=== PATIENT | male | born 1950 | race Caucasian/White ===

== ENCOUNTER → 2016-09-27 | Outpatient (CLI) | payer MEDICARE ==
[~2016-09-27] VITALS: Ht 177.8 cm; Wt 91.2 kg
[~2016-09-27] MED LIST: ASPI1TAB PO; GLIP10TA6 PO; JANU100T PO; LIDOCAINE 2% INJ 100 MG/5 ML SDV (FOR ANES.) As Ordered ONE; METF750T PO; NS 1,000 ML IV SCH; PROPOFOL 500 MG/50 ML VIAL As Ordered ONE; RAMI10CA PO; SIMV40TA2 PO
--- NOTE | 2016-09-27 12:06 | ROOR ---
Patient Name: Steve Singleton Procedure Date: 09/27/2016 11:37 AM Date of : 1950 Age: 66 Room: [facility] Gender: Male Note Status: Finalized Procedure: Colonoscopy to Cecum + Cold Snare Polypectomy + Hemoclips Indications: High risk colon cancer surveillance: Personal history of adenoma with villous component Providers: Horacio Morin MD Referring MD: WILIAN JACKSON JR, MD Requesting Provider: Medicines: Monitored Anesthesia Care Complications: No immediate complications. Procedure: Pre-Anesthesia Assessment: - The heart rate, respiratory rate, oxygen saturations, blood pressure, adequacy of pulmonary ventilation, and response to care were monitored throughout the procedure. The Colonoscope was introduced through the anus and advanced to the cecum, identified by appendiceal orifice and ileocecal valve. The colonoscopy was performed without difficulty. The patient tolerated the procedure well. The quality of the bowel preparation was good. Findings: The perianal and digital rectal examinations were normal. Non-bleeding internal hemorrhoids were found during retroflexion. The hemorrhoids were small and Grade I (internal hemorrhoids that do not prolapse). A medium polyp was found at 60 cm proximal to the anus. The polyp was sessile. The polyp was removed with a cold snare. Resection and retrieval were complete. To prevent bleeding after the polypectomy, one hemostatic clip was successfully placed (MR conditional). There was no bleeding at the end of the procedure. A diffuse area of granular mucosa was found in the entire colon. Biopsies were taken with a cold forceps for histology. The exam was otherwise without abnormality on direct and retroflexion views. Impression: - Non-bleeding internal hemorrhoids. - One medium polyp at 60 cm proximal to the anus, removed with a cold snare. Resected and retrieved. Clip (MR conditional) was placed. - Granularity in the entire examined colon. Biopsied. - The examination was otherwise normal on direct and retroflexion views. - The exam was otherwise normal to the cecum. Recommendation: - Patient has a contact number available for emergencies. The signs and symptoms of potential delayed complications were discussed with the patient. Return to normal activities tomorrow. Written discharge instructions were provided to the patient. - High fiber diet. - Discharge patient to home. - Continue present medications. - Await pathology results. - Check Portal Online for Path Results.([email or web address]) - Repeat colonoscopy for surveillance based on pathology results. - Return to referring physician. - The findings and recommendations were discussed with the patient's family. Horacio Morin MD Horacio Morin MD 09/27/2016 12:06:19 PM This report has been signed electronically. Number of Addenda: 0 Note Initiated On: 09/27/2016 11:37 AM Estimated Blood Loss: Estimated blood loss: none.
[2016-09-27 12:38] VITALS: BP 141/77
== END ==
LOC: M OPP 10:24
PROVIDERS: ATTEND Internal Medicine Gastroenterology
DX: Z12.11 Encounter for screening for malignant neoplasm of colon (principal); Z86.010 Personal history of colon polyps; D12.6 Benign neoplasm of colon, unspecified; K64.0 First degree hemorrhoids; K63.89 Other specified diseases of intestine; E11.9 Type 2 diabetes mellitus without complications; E78.5 Hyperlipidemia, unspecified; K90.0 Celiac disease; Z87.891 Personal history of nicotine dependence; Z79.82 Long term (current) use of aspirin; Z79.84 Long term (current) use of oral hypoglycemic drugs; Z79.899 Other long term (current) drug therapy

== ENCOUNTER 2017-10-15 06:42 | Day surgery (SDC) | payer MEDICARE ==
[2017-10-15] MEDS: NS 1,000 ML IV (07:02)
[2017-10-15] MEDS ORDERED: PROPOFOL 200 MG/20 ML VIAL As Ordered ×2 (07:24→07:44)
[2017-10-15] MEDS ORDERED: LIDOCAINE 2% INJ 100 MG/5 ML SDV (FOR ANES.) As Ordered (07:24)
== END 2017-10-15 08:24 | disposition home or self-care (01) ==
LOC: M OPP 06:42
DX: K64.0 First degree hemorrhoids (principal); K63.89 Other specified diseases of intestine; Z86.010 Personal history of colon polyps; E11.9 Type 2 diabetes mellitus without complications; E87.5 Hyperkalemia; K90.0 Celiac disease; Z79.82 Long term (current) use of aspirin; Z79.84 Long term (current) use of oral hypoglycemic drugs; Z79.899 Other long term (current) drug therapy; Z87.891 Personal history of nicotine dependence
CPT/HCPCS: 45380

== ENCOUNTER → 2021-04-20 | Outpatient (CLI) | payer MEDICARE ==
[~2021-04-20] MED LIST changes: -ASPI1TAB PO; +ASPI81TA26 PO; -LIDOCAINE 2% INJ 100 MG/5 ML SDV (FOR ANES.) As Ordered ONE; -METF750T PO; +METF750T36 PO; -NS 1,000 ML IV SCH; -PROPOFOL 500 MG/50 ML VIAL As Ordered ONE; -RAMI10CA PO; +RAMI1CAP26 PO; -SIMV40TA2 PO; +SIMV40TA20 PO
--- NOTE | 2021-04-20 12:17 | REP ---
INDICATION: RT ANTERIOR THIGH MASS ? CYST VS SOLID. COMPARISON: None. TECHNIQUE: Multiple ultrasound images of the palpable area in the right thigh were performed. FINDINGS: There is a 9.7 x 4.2 x 1.8 cm hypoechoic mass in the subcutaneous fat of the right thigh consistent with a lipoma. IMPRESSION: Subcutaneous lipoma, right thigh. <Electronically signed by Diego Cruz > 04/20/21 [id number]
== END ==
LOC: M RAD 11:38
PROVIDERS: ATTEND Internal Medicine
DX: D17.23 Benign lipomatous neoplasm of skin and subcutaneous tissue of right leg (principal); Z79.82 Long term (current) use of aspirin; Z79.899 Other long term (current) drug therapy

== ENCOUNTER 2022-02-14 14:37 | Inpatient (IN) | payer MEDICARE ==
[~2022-02-14] VITALS: Ht 175.3 cm; Wt 76.0 kg
[2022-02-14] MEDS ORDERED: TRUL0.5I SC (14:49)
[2022-02-14] MEDS ORDERED: JARD1TAB3 PO (14:49)
[2022-02-14 16:47] LABS: BASO % 0.5 % (0.0-1.0); EOS # 0.1 10^3/uL (0.0-0.5); EOS % 0.7 % (0.0-3.0); HEMATOCRIT 41.3 % (42.0-52.0); HEMOGLOBIN 13.2 g/dl (13.5-17.5); LYMPH # 1.2 10^3/uL (1.5-5.0); LYMPH % 14.6 % (24.0-44.0); MEAN CORPUSCULAR HEMOGLOBIN 26.3 pg (27.0-33.0); MEAN CORPUSCULAR VOLUME 82.3 fl (80.0-96.0); MONO # 0.7 10^3/uL (0.0-0.8); MONO % 8.7 % (2.0-8.0); NEUTROPHILS # 6.1 10^3/uL (1.5-8.5); NEUTROPHILS % 75.1 % (36.0-66.0); PLATELET COUNT, AUTOMATED 236 10^3/uL (150-450); RED BLOOD COUNT 5.02 10^6/uL (4.30-6.10); WHITE BLOOD COUNT 8.1 10^3/uL (4.0-10.0)
[2022-02-14 17:16] LABS: ALBUMIN 3.9 GM/DL (3.2-5.2); ALT/SGPT 25 U/L (12-78); BILIRUBIN,DIRECT 0.2 MG/DL (0.0-0.2); BILIRUBIN,TOTAL 0.5 MG/DL (0.2-1.0); BLOOD UREA NITROGEN 13 MG/DL (7-18); CALCIUM LEVEL 9.4 MG/DL (8.8-10.2); CARBON DIOXIDE LEVEL 26 MEQ/L (21-32); CHLORIDE LEVEL 103 MEQ/L (98-107); CK-MB VALUE MASS 2.1 NG/ML (<3.6); CREATININE FOR GFR 0.94 MG/DL (0.70-1.30); GLOMERULAR FILTRATION RATE > 60.0 (>42); GLUCOSE, FASTING 143 MG/DL (70-100); MB/CK RELATIVE INDEX 1.49 (< OR =4); POTASSIUM SERUM 3.3 MEQ/L (3.5-5.1); SODIUM LEVEL 135 MEQ/L (136-145); TOTAL PROTEIN 6.9 GM/DL (6.4-8.2)
[2022-02-14 17:21] LABS: RSV AMPLIFICATION NEGATIVE (NEGATIVE)
[2022-02-14] MEDS ORDERED: CIPROFLOXACIN 400 MG in IV 1 EA IV ONE (17:45)
[2022-02-14] MEDS ORDERED: metroNIDAZOLE 500 MG in IV 1 EA IV ONE (17:45)
[2022-02-14] MEDS ORDERED: GLUCAGON INJ 1MG VIAL SC PRN (18:00)
[2022-02-14] MEDS ORDERED: DEXTROSE 50% 50 ML SYRINGE IV PRN (18:00)
[2022-02-14] MEDS ORDERED: GLUCOSE 4GM CHEW TABLET PO PRN (18:00)
[2022-02-14] MEDS ORDERED: ISOVUE-370 76% 100ML VIAL As Ordered ONE (18:30)
[2022-02-14] MEDS ORDERED: ONDANSETRON 4MG 2ML VIAL IV PRN (18:45)
[2022-02-14] MEDS ORDERED: MORPHINE 2 MG/ML 1ML VIAL IV PRN (18:45)
[2022-02-14] MEDS: LR 1,000 ML IV SCH (19:44)
[2022-02-14] MEDS: INSULIN LISPRO (NovoLOG) PER UNIT SC SCH (19:49)
[2022-02-14 20:45] VITALS: BP 132/77
[2022-02-14] MEDS: KCL 10MEQ/100ML SWI (KRUN) 10 MEQ in IV 1 EA IV SCH ×2 (21:18→22:31)
[2022-02-14] MEDS: amLODIPine 5 MG TAB PO SCH (23:59)
[2022-02-15] VITALS (7 sets, daily range): BP systolic 128–137; BP diastolic 66–77
[2022-02-15] MEDS ORDERED: GLIP10TA6 PO (00:03)
[2022-02-15] MEDS ORDERED: HOME MED LIST COMPLETE! XX SCH (00:05)
[2022-02-15] MEDS: LR 1,000 ML IV SCH (03:07)
[2022-02-15] MEDS: metroNIDAZOLE 500 MG in IV 1 EA IV SCH ×3 (03:07→20:44)
[2022-02-15] MEDS: CIPROFLOXACIN 400 MG in IV 1 EA IV SCH ×2 (05:08→17:43)
[2022-02-15] MEDS: INSULIN LISPRO (NovoLOG) PER UNIT SC SCH ×4 (06:00→17:49)
[2022-02-15 06:15] LABS: BASO % 0.8 % (0.0-1.0); EOS # 0.1 10^3/uL (0.0-0.5); EOS % 2.7 % (0.0-3.0); HEMATOCRIT 36.4 % (42.0-52.0); HEMOGLOBIN 11.6 g/dl (13.5-17.5); LYMPH # 1.6 10^3/uL (1.5-5.0); LYMPH % 29.8 % (24.0-44.0); MEAN CORPUSCULAR HEMOGLOBIN 26.3 pg (27.0-33.0); MEAN CORPUSCULAR HGB CONC 31.9 g/dl (32.0-36.5); MEAN CORPUSCULAR VOLUME 82.5 fl (80.0-96.0); MONO # 0.6 10^3/uL (0.0-0.8); MONO % 11.5 % (2.0-8.0); NEUTROPHILS # 2.9 10^3/uL (1.5-8.5); PLATELET COUNT, AUTOMATED 198 10^3/uL (150-450); RED BLOOD COUNT 4.41 10^6/uL (4.30-6.10); WHITE BLOOD COUNT 5.2 10^3/uL (4.0-10.0)
[2022-02-15 06:42] LABS: BLOOD UREA NITROGEN 11 MG/DL (7-18); CALCIUM LEVEL 8.7 MG/DL (8.8-10.2); CARBON DIOXIDE LEVEL 25 MEQ/L (21-32); CHLORIDE LEVEL 104 MEQ/L (98-107); CREATININE FOR GFR 0.72 MG/DL (0.70-1.30); GLOMERULAR FILTRATION RATE > 60.0 (>42); GLUCOSE, FASTING 104 MG/DL (70-100); POTASSIUM SERUM 3.3 MEQ/L (3.5-5.1); SODIUM LEVEL 138 MEQ/L (136-145)
[2022-02-15] MEDS ORDERED: KCL 10MEQ/100ML SWI (KRUN) 10 MEQ in IV 1 EA IV ONE (08:00)
[2022-02-15] MEDS: amLODIPine 5 MG TAB PO SCH ×2 (08:30→20:45)
[2022-02-15] MEDS: KCL 40MEQ IN D5/NS 1000ML 1,000 ML IV SCH ×2 (08:31→20:44)
[2022-02-15] MEDS: HEPARIN SOD (PORCINE) 5000UNITS/ML 1ML VIAL/SYRINGE SC SCH ×2 (08:31→20:45)
[2022-02-16] MEDS: INSULIN LISPRO (NovoLOG) PER UNIT SC SCH ×4 (00:51→17:18)
[2022-02-16] MEDS: metroNIDAZOLE 500 MG in IV 1 EA IV SCH ×3 (04:15→20:10)
[2022-02-16] MEDS: CIPROFLOXACIN 400 MG in IV 1 EA IV SCH ×2 (05:27→17:18)
[2022-02-16] MEDS: KCL 40MEQ IN D5/NS 1000ML 1,000 ML IV SCH (05:27)
[2022-02-16 06:37] LABS: BASO % 0.7 % (0.0-1.0); EOS # 0.2 10^3/uL (0.0-0.5); EOS % 3.6 % (0.0-3.0); HEMOGLOBIN 11.8 g/dl (13.5-17.5); LYMPH # 1.2 10^3/uL (1.5-5.0); LYMPH % 28.5 % (24.0-44.0); MEAN CORPUSCULAR HEMOGLOBIN 26.5 pg (27.0-33.0); MEAN CORPUSCULAR HGB CONC 31.9 g/dl (32.0-36.5); MONO # 0.5 10^3/uL (0.0-0.8); MONO % 12.9 % (2.0-8.0); NEUTROPHILS # 2.3 10^3/uL (1.5-8.5); NEUTROPHILS % 54.1 % (36.0-66.0); PLATELET COUNT, AUTOMATED 202 10^3/uL (150-450); RED BLOOD COUNT 4.46 10^6/uL (4.30-6.10); WHITE BLOOD COUNT 4.2 10^3/uL (4.0-10.0)
[2022-02-16 07:16] LABS: BLOOD UREA NITROGEN 8 MG/DL (7-18); CALCIUM LEVEL 8.5 MG/DL (8.8-10.2); CARBON DIOXIDE LEVEL 22 MEQ/L (21-32); CHLORIDE LEVEL 110 MEQ/L (98-107); CREATININE FOR GFR 0.72 MG/DL (0.70-1.30); GLOMERULAR FILTRATION RATE > 60.0 (>42); GLUCOSE, FASTING 125 MG/DL (70-100); POTASSIUM SERUM 3.5 MEQ/L (3.5-5.1); SODIUM LEVEL 140 MEQ/L (136-145)
[2022-02-16] MEDS: amLODIPine 5 MG TAB PO SCH ×2 (10:25→19:54)
[2022-02-16] MEDS: HEPARIN SOD (PORCINE) 5000UNITS/ML 1ML VIAL/SYRINGE SC SCH ×2 (10:26→20:10)
[2022-02-16] MEDS ORDERED: DEXTROSE 50% 50 ML SYRINGE IV PRN (13:30)
[2022-02-16] MEDS ORDERED: GLUCAGON INJ 1MG VIAL SC PRN (13:30)
[2022-02-16] MEDS ORDERED: GLUCOSE 4GM CHEW TABLET PO PRN (13:30)
[2022-02-16 14:00] VITALS: BP 140/70
[2022-02-16] MEDS ORDERED: INSULIN LISPRO (NovoLOG) PER UNIT SC SCH (21:00)
[2022-02-16 22:00] VITALS: BP 134/70
[2022-02-17] MEDS: metroNIDAZOLE 500 MG in IV 1 EA IV SCH ×2 (04:39→12:01)
[2022-02-17] MEDS: CIPROFLOXACIN 400 MG in IV 1 EA IV SCH (05:53)
[2022-02-17 06:00] VITALS: BP 130/69
[2022-02-17 06:25] LABS: BASO % 0.7 % (0.0-1.0); EOS # 0.2 10^3/uL (0.0-0.5); EOS % 5.2 % (0.0-3.0); HEMATOCRIT 35.7 % (42.0-52.0); HEMOGLOBIN 11.5 g/dl (13.5-17.5); LYMPH # 1.4 10^3/uL (1.5-5.0); LYMPH % 29.5 % (24.0-44.0); MEAN CORPUSCULAR HEMOGLOBIN 26.8 pg (27.0-33.0); MEAN CORPUSCULAR HGB CONC 32.2 g/dl (32.0-36.5); MEAN CORPUSCULAR VOLUME 83.2 fl (80.0-96.0); MONO # 0.6 10^3/uL (0.0-0.8); MONO % 11.9 % (2.0-8.0); NEUTROPHILS # 2.4 10^3/uL (1.5-8.5); NEUTROPHILS % 52.5 % (36.0-66.0); PLATELET COUNT, AUTOMATED 201 10^3/uL (150-450); RED BLOOD COUNT 4.29 10^6/uL (4.30-6.10); WHITE BLOOD COUNT 4.6 10^3/uL (4.0-10.0)
[2022-02-17 07:01] LABS: BLOOD UREA NITROGEN 4 MG/DL (7-18); CALCIUM LEVEL 8.4 MG/DL (8.8-10.2); CARBON DIOXIDE LEVEL 26 MEQ/L (21-32); CHLORIDE LEVEL 109 MEQ/L (98-107); CREATININE FOR GFR 0.77 MG/DL (0.70-1.30); GLOMERULAR FILTRATION RATE > 60.0 (>42); GLUCOSE, FASTING 126 MG/DL (70-100); POTASSIUM SERUM 3.4 MEQ/L (3.5-5.1); SODIUM LEVEL 140 MEQ/L (136-145)
[2022-02-17] MEDS ORDERED: POTASSIUM CHLORIDE 10MEQ SR TABLET PO ONE (07:40)
[2022-02-17 07:48] VITALS: BP 130/67
[2022-02-17] MEDS: amLODIPine 5 MG TAB PO SCH (07:48)
[2022-02-17] MEDS: INSULIN LISPRO (NovoLOG) PER UNIT SC SCH ×2 (07:48→12:01)
[2022-02-17] MEDS: HEPARIN SOD (PORCINE) 5000UNITS/ML 1ML VIAL/SYRINGE SC SCH (07:49)
[2022-02-17] MEDS ORDERED: METR-265 PO (10:31)
[2022-02-17] MEDS ORDERED: CIPR-249 PO (10:31)
[2022-02-17 14:00] VITALS: BP 137/65
== END 2022-02-17 14:57 | disposition home or self-care (01) | DRG 390 ==
LOC: M ED 14:37 → M ED INP 17:59 → ENRESERV 19:57 → M MSPAV 20:45
PROVIDERS: ADMIT Internal Medicine Nephrology; ATTEND Internal Medicine Nephrology
DX: K56.600 Partial intestinal obstruction, unspecified as to cause (principal); K90.0 Celiac disease; E11.9 Type 2 diabetes mellitus without complications; K52.89 Other specified noninfective gastroenteritis and colitis; I10 Essential (primary) hypertension; E87.6 Hypokalemia; E78.00 Pure hypercholesterolemia, unspecified; Z86.010 Personal history of colon polyps; Z79.82 Long term (current) use of aspirin; Z79.84 Long term (current) use of oral hypoglycemic drugs; Z79.899 Other long term (current) drug therapy; Z87.891 Personal history of nicotine dependence

== ENCOUNTER → 2022-03-01 | Outpatient (CLI) | payer MEDICARE ==
[~2022-03-01] MED LIST changes: +CIPR-249 PO; +CIPR500T39 PO; +JARD1TAB3 PO; +METR-265 PO; +TRUL0.5I SC
[2022-03-01 11:28] LABS: BLOOD UREA NITROGEN 8 MG/DL (7-18); CREATININE FOR GFR 0.84 MG/DL (0.70-1.30); GLOMERULAR FILTRATION RATE > 60.0 (>42)
== END ==
LOC: M RAD 10:05 → M LAB 10:05
PROVIDERS: ATTEND Surgery
DX: Z01.818 Encounter for other preprocedural examination (principal); R10.84 Generalized abdominal pain

== ENCOUNTER → 2022-04-12 | Outpatient (CLI) | payer MEDICARE ==
[~2022-04-12] MED LIST changes: +META1POW PO; +ONDA-84 PO; +PERCOCET PO; +PROC10TA5 PO
== END ==
LOC: M ONCR 13:40
PROVIDERS: ATTEND Dietitian, Registered
DX: C18.7 Malignant neoplasm of sigmoid colon (principal); Z93.3 Colostomy status; E11.9 Type 2 diabetes mellitus without complications; K90.0 Celiac disease

== ENCOUNTER → 2022-05-01 | Outpatient (CLI) | payer MEDICARE ==
[~2022-05-01] MED LIST changes: -ONDA-84 PO; -PROC10TA5 PO
== END ==
LOC: M LABSMTC 11:45
PROVIDERS: ATTEND Anesthesiology
DX: Z01.818 Encounter for other preprocedural examination (principal); Z11.52 Encounter for screening for COVID-19

== ENCOUNTER → 2022-05-02 | Outpatient (CLI) | payer MEDICARE ==
[~2022-05-02] MED LIST changes: +GASTROGRAFIN SOLUTION 30ML As Ordered ONE; +ISOVUE-370 76% 100ML VIAL As Ordered ONE
== END ==
LOC: M RAD 15:25
PROVIDERS: ATTEND Internal Medicine Hematology & Oncology
DX: C18.9 Malignant neoplasm of colon, unspecified (principal)
CPT/HCPCS: 71260; 74177; Q9963; Q9967

== ENCOUNTER → 2022-05-04 | Outpatient (CLI) | payer MEDICARE ==
[~2022-05-04] MED LIST changes: -GASTROGRAFIN SOLUTION 30ML As Ordered ONE; -ISOVUE-370 76% 100ML VIAL As Ordered ONE; +LIDOCAINE 1% MDV 20ML VIAL As Ordered ONE; +MIDAZOLAM INJ 2MG/2ML VIAL (J2250 PER 1MG) As Ordered ONE; +NS 1,000 ML IV SCH; +ONDA-84 PO; +PROC10TA5 PO; +ceFAZolin 2 GM/D5W 50 ML IV BAG (J0690 PER 500MG) As Ordered ONE; +ceFAZolin SOD 2 GM in IV 1 EA IV ONE; +diphenhydrAMINE 50MG/ML VIAL As Ordered ONE; +fentaNYL 100 MCG/2 ML INJECTION As Ordered ONE
[2022-05-04 16:50] VITALS: BP 136/75
== END ==
LOC: M IRPRO 11:36
PROVIDERS: ATTEND Internal Medicine Hematology & Oncology
DX: C18.9 Malignant neoplasm of colon, unspecified (principal)
CPT/HCPCS: 36561; C1769; C1788; C1894; J0690; J1200; J1642; J1644; J2250; J3010

== ENCOUNTER → 2022-05-23 | Outpatient (POV) | payer MEDICARE ==
[~2022-05-23] VITALS: Ht 175.3 cm; Wt 71.3 kg
[~2022-05-23] MED LIST changes: -LIDOCAINE 1% MDV 20ML VIAL As Ordered ONE; -MIDAZOLAM INJ 2MG/2ML VIAL (J2250 PER 1MG) As Ordered ONE; -NS 1,000 ML IV SCH; -ceFAZolin 2 GM/D5W 50 ML IV BAG (J0690 PER 500MG) As Ordered ONE; -ceFAZolin SOD 2 GM in IV 1 EA IV ONE; -diphenhydrAMINE 50MG/ML VIAL As Ordered ONE; -fentaNYL 100 MCG/2 ML INJECTION As Ordered ONE
[2022-05-23 15:15] VITALS: BP 136/64
== END ==
LOC: M IRPOV 15:10
PROVIDERS: ATTEND Radiology Diagnostic Radiology
DX: Z45.2 Encounter for adjustment and management of vascular access device (principal)

== ENCOUNTER → 2022-10-04 | Outpatient (CLI) | payer MEDICARE ==
[~2022-10-04] MED LIST changes: +FERR325T3 PO; +GASTROGRAFIN SOLUTION 30ML As Ordered ONE; +ISOVUE-370 76% 100ML VIAL As Ordered ONE; +LANTINJ4 SC
== END ==
LOC: M RAD 09:21
PROVIDERS: ATTEND Nurse Practitioner
DX: C18.9 Malignant neoplasm of colon, unspecified (principal)
CPT/HCPCS: 71260; 74177; Q9963; Q9967

== ENCOUNTER 2022-10-25 10:04 | Day surgery (SDC) | payer MEDICARE ==
[~2022-10-25] VITALS: Ht 177.8 cm; Wt 77.9 kg
[~2022-10-25 10:04] MED LIST changes: -GASTROGRAFIN SOLUTION 30ML As Ordered ONE; -ISOVUE-370 76% 100ML VIAL As Ordered ONE; +NS 1,000 ML IV ONE
[2022-10-25] MEDS ORDERED: fentaNYL 100 MCG/2 ML INJECTION As Ordered ONE (10:35)
[2022-10-25] MEDS ORDERED: LIDOCAINE 2% MDV 20ML VIAL As Ordered ONE (10:35)
[2022-10-25] MEDS ORDERED: propofoL 200 MG/20 ML VIAL As Ordered ONE (10:35)
[2022-10-25 11:29] VITALS: BP 115/60
== END 2022-10-25 11:32 | disposition home or self-care (01) ==
LOC: M OPP 10:04
PROVIDERS: ATTEND Surgery
DX: Z01.818 Encounter for other preprocedural examination (principal); K64.9 Unspecified hemorrhoids; Z93.3 Colostomy status; I10 Essential (primary) hypertension; E78.5 Hyperlipidemia, unspecified; E11.9 Type 2 diabetes mellitus without complications; K52.9 Noninfective gastroenteritis and colitis, unspecified; K21.9 Gastro-esophageal reflux disease without esophagitis; M19.90 Unspecified osteoarthritis, unspecified site; Z87.891 Personal history of nicotine dependence; Z79.4 Long term (current) use of insulin; Z79.82 Long term (current) use of aspirin; Z79.84 Long term (current) use of oral hypoglycemic drugs; Z79.85 Long-term (current) use of injectable non-insulin antidiabetic drugs; Z79.899 Other long term (current) drug therapy
CPT/HCPCS: 44388; J3010

== ENCOUNTER → 2023-05-07 | Outpatient (CLI) | payer MEDICARE ==
[~2023-05-07] MED LIST changes: +GASTROGRAFIN SOLUTION 30ML As Ordered ONE; +GLIP10TA PO; +ISOVUE-370 76% 100ML VIAL As Ordered ONE; -NS 1,000 ML IV ONE
== END ==
LOC: M RAD 10:56
PROVIDERS: ATTEND Nurse Practitioner
DX: C18.9 Malignant neoplasm of colon, unspecified (principal)
CPT/HCPCS: 74177; Q9963; Q9967

== ENCOUNTER → 2023-10-12 | Day surgery (SDC) | payer MEDICARE ==
[~2023-10-12] VITALS: Ht 175.3 cm; Wt 73.9 kg
[~2023-10-12] MED LIST changes: -GASTROGRAFIN SOLUTION 30ML As Ordered ONE; -ISOVUE-370 76% 100ML VIAL As Ordered ONE; +NS 1,000 ML IV ONE; +propofoL 200 MG/20 ML VIAL As Ordered ONE
[2023-10-12 12:21] VITALS: BP 137/71; O2SAT 99
== END | disposition home or self-care (01) ==
LOC: M OPP 09:35
PROVIDERS: ATTEND Surgery
DX: Z85.038 Personal history of other malignant neoplasm of large intestine (principal); K64.9 Unspecified hemorrhoids; Z98.0 Intestinal bypass and anastomosis status; K52.89 Other specified noninfective gastroenteritis and colitis; Z87.891 Personal history of nicotine dependence; E11.9 Type 2 diabetes mellitus without complications; I10 Essential (primary) hypertension; Z79.02 Long term (current) use of antithrombotics/antiplatelets; Z79.4 Long term (current) use of insulin; Z79.82 Long term (current) use of aspirin; Z79.899 Other long term (current) drug therapy

== ENCOUNTER → 2023-10-19 | Outpatient (CLI) | payer MEDICARE ==
[~2023-10-19] MED LIST changes: +GASTROGRAFIN SOLUTION 30ML As Ordered ONE; +ISOVUE-370 76% 100ML VIAL As Ordered ONE; -NS 1,000 ML IV ONE; -propofoL 200 MG/20 ML VIAL As Ordered ONE
== END ==
LOC: M RAD 09:02
PROVIDERS: ATTEND Internal Medicine Medical Oncology
DX: C18.9 Malignant neoplasm of colon, unspecified (principal)
CPT/HCPCS: 71260; 74177; Q9963; Q9967

== ENCOUNTER 2024-04-03 11:24 | Day surgery (SDC) | payer MEDICARE, OTHER ==
[~2024-04-03] VITALS: Ht 175.3 cm; Wt 76.7 kg
[~2024-04-03 11:24] MED LIST changes: +CHOL4POW26 PO; -GASTROGRAFIN SOLUTION 30ML As Ordered ONE; +GLIP10TA15 PO; -GLIP10TA6 PO; -ISOVUE-370 76% 100ML VIAL As Ordered ONE; +PHENYLEPHRINE 10% OPHTH SOL 5ML OS PRN; +RAMI10CA64 PO; -RAMI1CAP26 PO; +SEMA1PEN2 SQ; +fentaNYL 100 MCG/2 ML INJECTION As Ordered ONE
[2024-04-03] MEDS: OFLOXACIN 0.3 % (OCUFLOX) OPTH SOL 5ML OS ONE (12:15)
[2024-04-03] MEDS: PHENYLEPHRINE 2.5% OPHTH SOL 2ML OS SCH (12:15)
[2024-04-03] MEDS: TROPICAMIDE 1% OPHTH SOLN 15ML OS SCH (12:15)
[2024-04-03] MEDS: ATROPINE SULFATE 1% OPHTH SOLN 2ML BTL OS SCH (12:15)
[2024-04-03] MEDS: LIDOCAINE 3.5 % 1ML OPHTH TOPICAL GEL OU ONE (12:15)
[2024-04-03] MEDS: BSS IRRIG/VANCO(10MG)/TOBRA(5MG)/EPINEPH(1:1000-0.5CC)500ML BAG-ORONLY As Ordered ONE (12:36)
[2024-04-03] MEDS: LIDOCAINE 1% SDV 5ML VIAL As Ordered ONE (12:36)
[2024-04-03] MEDS: CARBACHOL 0.01% OPHTH SOLN 1.5ML VIAL As Ordered ONE (12:45)
[2024-04-03] MEDS: VISCOAT 40-30MG/ML 0.5ML SYRINGE As Ordered ONE (12:45)
[2024-04-03] MEDS: CEFUROXIME 1MG/0.1ML INTRACAMERAL INJ As Ordered ONE (12:46)
[2024-04-03 12:50] VITALS: BP 150/71; TEMP 97.4; O2SAT 96
== END 2024-04-03 13:07 | disposition home or self-care (01) ==
LOC: M SDC 11:24
PROVIDERS: ATTEND Ophthalmology
DX: H25.12 Age-related nuclear cataract, left eye (principal); E11.9 Type 2 diabetes mellitus without complications; Z79.899 Other long term (current) drug therapy
CPT/HCPCS: 66984; J0697; J3010; V2632

== ENCOUNTER 2024-04-17 08:51 | Day surgery (SDC) | payer MEDICARE, OTHER ==
[~2024-04-17] VITALS: Ht 175.3 cm; Wt 75.5 kg
[~2024-04-17 08:51] MED LIST changes: +PHENYLEPHRINE 10% OPHTH SOL 5ML OD PRN; -PHENYLEPHRINE 10% OPHTH SOL 5ML OS PRN; -fentaNYL 100 MCG/2 ML INJECTION As Ordered ONE
[2024-04-17] MEDS: OFLOXACIN 0.3 % (OCUFLOX) OPTH SOL 5ML OD ONE (09:50)
[2024-04-17] MEDS: LIDOCAINE 3.5 % 1ML OPHTH TOPICAL GEL OU ONE (09:50)
[2024-04-17] MEDS: PHENYLEPHRINE 2.5% OPHTH SOL 2ML OD SCH (09:55)
[2024-04-17] MEDS: ATROPINE SULFATE 1% OPHTH SOLN 2ML BTL OD SCH (09:55)
[2024-04-17] MEDS: TROPICAMIDE 1% OPHTH SOLN 15ML OD SCH (09:56)
[2024-04-17] MEDS ORDERED: MIDAZOLAM INJ 2MG/2ML VIAL As Ordered ONE (10:48)
[2024-04-17] MEDS: BSS IRRIG/VANCO(10MG)/TOBRA(5MG)/EPINEPH(1:1000-0.5CC)500ML BAG-ORONLY As Ordered ONE (10:49)
[2024-04-17] MEDS: LIDOCAINE 1% SDV 5ML VIAL As Ordered ONE (10:49)
[2024-04-17] MEDS: CEFUROXIME 1MG/0.1ML INTRACAMERAL INJ As Ordered ONE (10:59)
[2024-04-17 11:04] VITALS: BP 119/65; TEMP 97.1; O2SAT 97
== END 2024-04-17 11:16 | disposition home or self-care (01) ==
LOC: M SDC 08:51
PROVIDERS: ATTEND Ophthalmology
DX: H25.11 Age-related nuclear cataract, right eye (principal); E11.9 Type 2 diabetes mellitus without complications; Z79.899 Other long term (current) drug therapy; Z98.42 Cataract extraction status, left eye
CPT/HCPCS: 66984; J0697; J2250; V2632

== ENCOUNTER → 2024-10-17 | Outpatient (CLI) | payer MEDICARE ==
[~2024-10-17] MED LIST changes: +ISOVUE-370 76% 100ML VIAL As Ordered ONE; -PHENYLEPHRINE 10% OPHTH SOL 5ML OD PRN
== END ==
LOC: M RAD 09:00
PROVIDERS: ATTEND Nurse Practitioner Women's Health
DX: C18.9 Malignant neoplasm of colon, unspecified (principal)
CPT/HCPCS: 71260; 74177; Q9967